=== PATIENT | female | born 1980 | race Caucasian/White ===

== ENCOUNTER 2016-08-20 09:24 | Emergency (ER) | payer BC ==
[~2016-08-20] VITALS: Ht 162.6 cm; Wt 95.5 kg
[~2016-08-20 09:24] MED LIST: ALBUTEROL0.83 MG/ML IH; ALBUTEROL1.25 MG/3 IH; ANTIVERT 25MG25 MG PO; ESCITALOPRAM; FLONASE NASAL S16 GM; FLONASE NASAL S16 GM NS; FLONASEALLERGY NS; LISINOPRIL20 MG PO; MOTRIN 800800 MG/TAB PO; MOTRIN800 MG PO; MUCINEX1200 MG PO; NORCO 325 MG-51 TAB PO; PREDNISONE20 MG PO; ULTRAM 50MG TAB50 MG PO; VENTOLIN0.09 MG IH; VICODIN 5/5001 UDTAB PO; ZITHROMAX 250M250 MG PO; ZYRTEC 10MG10 MG PO
[2016-08-20 09:28] VITALS: BP 136/73; TEMP 98.9
[2016-08-20] MEDS ORDERED: PROAIR HFA0.09 MG/AC IH ×2 (09:59→12:46)
[2016-08-20 11:10] LABS: ADJUSTED CALCIUM 9.2 mg/dL (8.4-10.2); ALANINE AMINOTRANSFERASE 21 U/L (9-52); ALBUMIN 3.8 gm/dL (3.5-5.0); ALKALINE PHOSPHATASE 84 U/L (50-136); ANION GAP 11 mmol/L (7-16); BILIRUBIN,TOTAL 0.8 mg/dL (0.0-1.0); BLOOD UREA NITROGEN 8 mg/dL (7-17); CARBON DIOXIDE 25 mmol/L (22-30); CHLORIDE 102 mmol/L (98-107); GLUCOSE 119 mg/dL (74-106); POTASSIUM 3.7 mmol/L (3.4-5.0); SODIUM 139 mmol/L (137-145); TOTAL PROTEIN 6.9 gm/dL (6.4-8.2)
[2016-08-20 11:22] LABS: TROPONIN-I < 0.012 ng/mL (0.000-0.034)
[2016-08-20] MEDS ORDERED: PREDNISONE20 MG PO (12:46)
[2016-08-20] MEDS ORDERED: AEROCHAMBER1 DEV PO (12:46)
[2016-08-20] MEDS ORDERED: PHENERGAN W/CO120 M1 PO (13:50)
[2016-08-20 14:23] LABS: HEMATOCRIT 31.4 % (37.0-47.0); HEMOGLOBIN 9.4 g/dl (12.5-16.0); MEAN CELL VOLUME 66 fl (80.0-100.0); MEAN CORPUSCULAR HEMOGLOBIN 20 pg (27.0-31.0); MEAN CORPUSCULAR HGB CONC 30 g/dl (33.0-37.0); RED BLOOD COUNT 4.75 M/mm3 (4.10-5.30); REDCELL DISTRIBUTION WIDTH-CV 17.8 % (11.5-14.5); WHITE BLOOD COUNT 16.9 K/mm3 (4.8-10.8)
[2016-08-20 14:27] LABS: BASO % 0.2 % (0.0-2.0); EOS % 1.8 % (0-4.0); GRAN % 85.6 % (42.2-75.2); LYMPH % 8.8 % (20.0-51.0); MONO % 3.1 % (1.7-9.3); PLATELET COUNT 302 K/mm3 (130-400)
[2016-08-20 14:28] LABS: EOS # 0.3 (0.0-0.7); GRAN # 14.4 (1.4-6.5); LYMPH # 1.5 (1.2-3.4); MONO # 0.5 (0.1-0.6)
[2016-08-20] MEDS ORDERED: VIBRAMYCININJ PO (15:01)
[2016-08-20 15:15] VITALS: PULSE 102
== END 2016-08-20 15:15 | disposition home or self-care (01) ==
LOC: COL.ER 09:24
PROVIDERS: Emergency Medicine; Nurse Practitioner
DX: J45.901 Unspecified asthma with (acute) exacerbation (principal); J20.9 Acute bronchitis, unspecified; Z87.891 Personal history of nicotine dependence; R79.89 Other specified abnormal findings of blood chemistry
CPT/HCPCS: J2405; J2930; J7030; Q9967

== ENCOUNTER 2018-03-31 14:52 | Emergency (ER) | payer BC ==
[~2018-03-31] VITALS: Ht 162.6 cm; Wt 95.5 kg
[~2018-03-31 14:52] MED LIST changes: +AEROCHAMBER1 DEV PO; +PHENERGAN W/CO120 M1 PO; +PROAIR HFA0.09 MG/AC IH; +VIBRAMYCININJ PO
[2018-03-31 14:54] VITALS: TEMP 98.7
[2018-03-31 15:55] LABS: ALBUMIN 3.8 gm/dL (3.5-5.0); BILIRUBIN,TOTAL 0.6 mg/dL (0.0-1.0); CALCIUM 8.4 mg/dL (8.4-10.2); CREATININE, serum 0.56 mg/dL (0.52-1.25); POTASSIUM 3.4 mmol/L (3.4-5.0); TOTAL PROTEIN 7.2 gm/dL (6.4-8.2)
[2018-03-31 16:13] LABS: COLLECTION METHOD CLEAN CATCH
[2018-03-31 16:22] LABS: MUCOUS Present /lpf; PH 5 (5-8); SQUAMOUS EPITHELIAL 20-50 /hpf; URINE APPEARANCE Turbid; URINE BACTERIA Rare /hpf; URINE BILIRUBIN Negative (NEGATIVE); URINE BLOOD 1+ (NEGATIVE); URINE COLOR Amber; URINE GLUCOSE Negative (NEGATIVE); URINE KETONE Negative (NEGATIVE); URINE LEUKOCYTE ESTERASE 2+ (NEGATIVE); URINE NITRATE Negative (NEGATIVE); URINE PROTEIN(semi-quant) 1+ (NEGATIVE); URINE UROBILINOGEN Negative (NEGATIVE)
[2018-03-31] MEDS ORDERED: CEPHALEXIN500 M1 PO (17:46)
[2018-03-31] MEDS ORDERED: PHENERGAN 25 TA25 MG PO (17:47)
[2018-03-31 21:26] VITALS: BP 104/55; PULSE 80
== END 2018-03-31 21:26 | disposition home or self-care (01) ==
LOC: COL.ER 14:52
PROVIDERS: Emergency Medicine
DX: K52.9 Noninfective gastroenteritis and colitis, unspecified (principal); N39.0 Urinary tract infection, site not specified
CPT/HCPCS: A4216; J0696; J0780; J1170; J1200; J1885; J2405; J7030

== ENCOUNTER 2020-05-26 16:55 | Observation (INO) | payer BC ==
[~2020-05-26] VITALS: Ht 162.6 cm; Wt 100.0 kg
[~2020-05-26 16:55] MED LIST changes: +CEPHALEXIN500 M1 PO; +PHENERGAN 25 TA25 MG PO
[2020-05-26 17:55] LABS: BASO % 0.3 % (0.0-2.0); EOS # 0.7 (0.0-0.7); EOS % 5.2 % (0-4.0); GRAN # 7.3 (1.4-6.5); GRAN % 57.6 % (42.2-75.2); LYMPH # 3.8 (1.2-3.4); MEAN CELL VOLUME 65 fl (80.0-100.0); MEAN CORPUSCULAR HGB CONC 29 g/dl (33.0-37.0); MONO # 0.8 (0.1-0.6); MONO % 6.3 % (1.7-9.3); PLATELET COUNT 261 K/mm3 (130-400); RED BLOOD COUNT 5.24 M/mm3 (4.10-5.30); REDCELL DISTRIBUTION WIDTH-CV 19.8 % (11.5-14.5)
[2020-05-26 17:58] LABS: INR 1.1 (0.8-3.0); PROTHROMBIN TIME 11.8 SECONDS (9.7-12.8)
[2020-05-26 17:59] LABS: HEMATOCRIT 33.9 % (37.0-47.0); HEMOGLOBIN 9.8 g/dl (12.5-16.0); MEAN CORPUSCULAR HEMOGLOBIN 19 pg (27.0-31.0)
[2020-05-26 18:01] LABS: PARTIAL THROMBOPLASTIN TIME 33.5 SECONDS (26.0-37.0)
[2020-05-26 18:19] LABS: HIV 1/2 Antibodies Non-Reactive; HIV-1p24 Antigen Non-Reactive
[2020-05-26 18:42] LABS: ALBUMIN 4.1 gm/dL (3.5-5.0); BILIRUBIN,TOTAL 0.4 mg/dL (0.0-1.0); CALCIUM 9.1 mg/dL (8.4-10.2); CREATININE, serum 0.55 (0.52-1.25); POTASSIUM 4.2 mmol/L (3.4-5.0); TOTAL PROTEIN 7.6 gm/dL (6.4-8.2)
[2020-05-26 18:50] LABS: COLLECTION METHOD CLEAN CATCH
[2020-05-26 18:55] LABS: MEAN CELL VOLUME 66 fl (80.0-100.0); MEAN CORPUSCULAR HGB CONC 29 g/dl (33.0-37.0); PLATELET COUNT 269 K/mm3 (130-400); RED BLOOD COUNT 5.22 M/mm3 (4.10-5.30); REDCELL DISTRIBUTION WIDTH-CV 19.6 % (11.5-14.5)
[2020-05-26 19:00] LABS: PH 6 (5-8); SQUAMOUS EPITHELIAL 0-2 /hpf; URINE APPEARANCE Hazy; URINE BACTERIA Rare /hpf; URINE BILIRUBIN Negative (NEGATIVE); URINE BLOOD Negative (NEGATIVE); URINE COLOR Yellow; URINE GLUCOSE Negative (NEGATIVE); URINE KETONE Negative (NEGATIVE); URINE LEUKOCYTE ESTERASE Negative (NEGATIVE); URINE NITRATE Negative (NEGATIVE); URINE PROTEIN(semi-quant) Negative (NEGATIVE); URINE RBC 0-2 /hpf; URINE UROBILINOGEN Negative (NEGATIVE)
[2020-05-26 19:03] LABS: HEMATOCRIT 34.2 % (37.0-47.0); HEMOGLOBIN 9.8 g/dl (12.5-16.0); MEAN CORPUSCULAR HEMOGLOBIN 19 pg (27.0-31.0)
[2020-05-26] MEDS ORDERED: ALBUTEROL0.83 MG/ML IH (19:39)
--- NOTE | 2020-05-26 20:45 | NUR ---
Patient to medical room 307 at this time. She ambulates independently from wheelchair to bed and is alert and oriented. She is oriented to room ammenities and the plan for the night. Admission assessments complete.
[2020-05-26 23:31] VITALS: BP 127/55; PULSE 46; TEMP 98.2
[2020-05-26 23:46] VITALS: PULSE 96
--- NOTE | 2020-05-27 00:27 | NUR ---
At this time, patient has just returned to bed from ambulating to and from bathroom. She states whenever she was about to get up and walk to the bathroom she "almost called for help" because her feet and legs felt numb and tingly. She states this has not happened before at home. After a few seconds sitting on the edge of the bed, the sensation subsided and patient was able to independently ambulate to the bathroom. She still has full/normal strength in both lower extremities. She states there is some mild numbness/tingling in her right hand as well; hand title closer are equal and both upper extremities have normal strength. Will continue to monitor.
[2020-05-27 00:37] LABS: IRON,SERUM 17 ug/dL (35-150)
[2020-05-27 00:47] LABS: TOTAL IRON BINDING CAPACITY 377 ug/dL (265-497)
[2020-05-27 03:36] VITALS: BP 118/56; PULSE 107; TEMP 98.2
--- NOTE | 2020-05-27 05:57 | NUR ---
Patient still has complaints of "numbness and tingling in ankles and feet" at this time. She continues to have to acclimate on the side of the bed prior to standing. She states she feels slightly woozy upon standing. Phyllis Oneill notified of this situation. Will continue to monitor.
[2020-05-27 07:48] LABS: BASO % 0.3 % (0.0-2.0); EOS # 0.7 (0.0-0.7); EOS % 6.5 % (0-4.0); GRAN # 6.6 (1.4-6.5); GRAN % 58.5 % (42.2-75.2); LYMPH # 3.1 (1.2-3.4); LYMPH % 27.7 % (20.0-51.0); MEAN CELL VOLUME 65 fl (80.0-100.0); MEAN CORPUSCULAR HGB CONC 29 g/dl (33.0-37.0); MONO # 0.7 (0.1-0.6); MONO % 6.2 % (1.7-9.3); PLATELET COUNT 239 K/mm3 (130-400); RED BLOOD COUNT 4.95 M/mm3 (4.10-5.30); REDCELL DISTRIBUTION WIDTH-CV 19.8 % (11.5-14.5)
[2020-05-27 07:50] LABS: HEMATOCRIT 32.2 % (37.0-47.0); HEMOGLOBIN 9.4 g/dl (12.5-16.0); MEAN CORPUSCULAR HEMOGLOBIN 19 pg (27.0-31.0)
[2020-05-27 07:58] LABS: CALCIUM 8.7 mg/dL (8.4-10.2); CREATININE, serum 0.53 (0.52-1.25); POTASSIUM 4.1 mmol/L (3.4-5.0)
[2020-05-27 08:13] VITALS: BP 124/82; PULSE 95; TEMP 97.7
--- NOTE | 2020-05-27 10:30 | NUR ---
Pt awake and alert upon entry, has some C/O pain in her feet. Shift assessments complete, left Pt call light in reach.
--- NOTE | 2020-05-27 12:02 | NUR ---
First visit from the men's and boys' clothing salesperson. No needs right now.
[2020-05-27 12:34] VITALS: BP 121/56; PULSE 100; TEMP 97.6
[2020-05-27 12:52] VITALS: BP 125/76; PULSE 100
--- NOTE | 2020-05-27 15:10 | NUR ---
Color Coater met with the patient to complete intake. The patient lives in [place] with her daughter, Ashley. The patient is independent.The patient denies DME use. The patient's PCP is Dr. Patel and receives medications from [email or web address]. The patient does not have advanced directives. She is not and Ashley is her only child. The patient plans to return home at discharge and has no concerns about doing so. The patient will drive herself home. There are no additional needs at this time.
[2020-05-27 15:53] VITALS: BP 121/70; PULSE 92; TEMP 98.6
[2020-05-27] MEDS ORDERED: FERROUSAL325 MG PO (16:14)
[2020-05-27] MEDS ORDERED: SENNA-S 50 MG-81 TAB PO (16:14)
--- NOTE | 2020-05-27 18:30 | NUR ---
Pt discharged to home, discussed discharge instructions with Pt. Escorted Pt to entrance, Py left in own vehicle.
== END 2020-05-27 18:30 | disposition home or self-care (01) ==
LOC: COL.ER 16:55 → MEDICAL 18:39
PROVIDERS: Emergency Medicine; Nurse Practitioner; Nurse Practitioner Family
DX: D69.6 Thrombocytopenia, unspecified (principal); R42 Dizziness and giddiness; D72.829 Elevated white blood cell count, unspecified; D50.9 Iron deficiency anemia, unspecified; J45.909 Unspecified asthma, uncomplicated; R20.2 Paresthesia of skin; E66.9 Obesity, unspecified; Z68.37 Body mass index [BMI] 37.0-37.9, adult; Z87.891 Personal history of nicotine dependence
CPT/HCPCS: 99223-AI; 99232-AI; G0378; J2916; J7030

== ENCOUNTER 2021-09-30 11:21 | Emergency (ER) | payer BC ==
[~2021-09-30] VITALS: Ht 162.6 cm; Wt 118.2 kg
[~2021-09-30 11:21] MED LIST changes: +FERROUSAL325 MG PO; +SENNA-S 50 MG-81 TAB PO
[2021-09-30 11:34] VITALS: TEMP 98.3
[2021-09-30 12:30] LABS: INR 1.1 (0.8-3.0); PROTHROMBIN TIME 12.7 SECONDS (9.7-12.8)
[2021-09-30 12:40] LABS: ALBUMIN 3.3 gm/dL (3.5-5.0); BILIRUBIN,TOTAL 0.5 mg/dL (0.2-1.2); CALCIUM 9.1 mg/dL (8.4-10.2); CREATININE, serum 0.62 mg/dL (0.57-1.11); POTASSIUM 4.4 mmol/L (3.5-4.5); TOTAL PROTEIN 7.4 gm/dL (6.2-8.1)
[2021-09-30 14:45] LABS: BASO # 0.1 K/mm3 (0.0-0.2); BASO % 0.4 % (0.0-2.0); EOS # 0.8 K/mm3 (0.0-0.7); EOS % 6.7 % (0.0-4.0); GRAN # 6.9 K/mm3 (1.4-6.5); GRAN % 58.6 % (42.2-75.2); HEMATOCRIT 37.8 % (37.0-47.0); HEMOGLOBIN 11.8 g/dl (12.5-16.0); LYMPH # 3.3 K/mm3 (1.2-3.4); LYMPH % 28.1 % (20.0-51.0); MEAN CELL VOLUME 71 fl (80.0-100.0); MEAN CORPUSCULAR HEMOGLOBIN 22 pg (27-31); MEAN CORPUSCULAR HGB CONC 31 g/dl (33.0-37.0); MONO # 0.7 K/mm3 (0.1-0.6); MONO % 5.7 % (1.7-9.3); RED BLOOD COUNT 5.34 M/mm3 (4.10-5.30); REDCELL DISTRIBUTION WIDTH-CV 17.2 % (11.5-14.5)
[2021-09-30 14:46] LABS: PLATELET COUNT 151 K/mm3 (130-400)
[2021-09-30 15:51] VITALS: BP 108/73; PULSE 64
== END 2021-09-30 15:51 | disposition home or self-care (01) ==
LOC: COL.ER 11:21
PROVIDERS: Emergency Medicine; Physician Assistant
DX: R51.9 Headache, unspecified (principal); H93.13 Tinnitus, bilateral; D69.1 Qualitative platelet defects; E66.9 Obesity, unspecified; Z87.891 Personal history of nicotine dependence
CPT/HCPCS: J1100; J1200; J2765; J7030

== ENCOUNTER → 2021-11-24 | Outpatient (CLI) | payer BC | LOC: COL.RAD 07:20 | DX: R20.2 Paresthesia of skin (principal) ==

== ENCOUNTER 2023-04-14 09:26 | Inpatient (IN) | payer BC ==
[~2023-04-14] VITALS: Ht 162.6 cm; Wt 108.0 kg
[~2023-04-14 09:26] MED LIST changes: +ALA 100MG PO; +MOBIC 7.5MG7.5 MG PO; +VITRON-C PO; +knee brace
[2023-04-14 10:42] LABS: BASO % 0.2 % (0.0-2.0); EOS % 0.2 % (0.0-4.0); GRAN % 65.8 % (42.2-75.2); HEMOGLOBIN 11.9 g/dl (12.5-16.0); LYMPH # 1.1 K/mm3 (1.2-3.4); LYMPH % 24.4 % (20.0-51.0); MEAN CELL VOLUME 77 fl (80.0-100.0); MEAN CORPUSCULAR HEMOGLOBIN 25 pg (27-31); MEAN CORPUSCULAR HGB CONC 33 g/dl (33.0-37.0); MONO # 0.4 K/mm3 (0.1-0.6); PLATELET COUNT 134 K/mm3 (130-400); REDCELL DISTRIBUTION WIDTH-CV 17.4 % (11.5-14.5)
[2023-04-14 10:52] LABS: ALANINE AMINOTRANSFERASE 26 U/L (0-55); ALBUMIN 2.9 gm/dL (3.5-5.0); ALKALINE PHOSPHATASE 59 U/L (40-150); ANION GAP 11 mmol/L (7-16); AST,SGOT 22 U/L (5-34); BILIRUBIN,TOTAL 0.5 mg/dL (0.2-1.2); BLOOD UREA NITROGEN 6 mg/dL (7-19); CALCIUM 8.2 mg/dL (8.4-10.2); CARBON DIOXIDE 24 mmol/L (22-29); CHLORIDE 106 mmol/L (98-107); CREATININE, serum 0.64 mg/dL (0.57-1.11); GLUCOSE 140 mg/dL (70-99); POTASSIUM 3.4 mmol/L (3.5-4.5); SODIUM 141 mmol/L (136-145); TOTAL PROTEIN 6.1 gm/dL (6.2-8.1)
[2023-04-14 10:59] LABS: TROPONIN-I < 0.010 ng/mL (0.00-0.033)
[2023-04-14 13:59] VITALS: BP 96/63; PULSE 91; TEMP 98.8
--- NOTE | 2023-04-14 14:00 | NUR ---
PATIENT ARRIVED FROM ER AWAKE AND ALERT. PATIENT DENIES ANY NEEDS OR COMPLAINTS AT THIS TIME. PATIENTS VSS. CALL LIGHT WITHIN REACH. O2 AT 2LNC.
[2023-04-14] MEDS ORDERED: VITRON-C PO (14:10)
[2023-04-14 15:54] VITALS: BP 108/58; PULSE 89; TEMP 98.1
--- NOTE | 2023-04-14 18:30 | NUR ---
PATIENT AWAKE AND ALERT, SITTING UP IN RECLINER. PATIENT DENIES ANY NEEDS OR CONCERS AT THIS TIME. PATIENTS CALL LIGHT WITHIN REACH.
[2023-04-14 19:45] VITALS: BP 122/54; PULSE 102; TEMP 98.5
--- NOTE | 2023-04-14 20:00 | NUR ---
UPON SHIFT ASSESSMENT, KATHIE WAS UP IN BEDSIDE CHAIR AND AXO X 4. SHE C/O OF VICTOR AND PAIN WHEN BREATHING DEEPLY- FLANK AND STERNAL-6/10. NO INCREASE WOB NOTED. LUNG SOYUNDS AUSCULTATED [id number] LLL AND DIMINISHED IN RT. VSS ARE WNL AND TELE IS NS. WILL REASSESS AND ADMINISTER PRN PAIN MEDICATIONS. SKIN WAS NOTED TO HAVE DIFFUSE SCABS, SCRATCHES R/T NEURODERMATITIS AND CONFIRMED BY PATIENT. CALL LIGHT WITHIN REACH.
[2023-04-14 21:00] VITALS: BP_SYST 122
[2023-04-14 23:24] VITALS: BP 107/52; PULSE 90; TEMP 98.3
[2023-04-15] VITALS (10 sets, daily range): BP systolic 98–124; BP diastolic 52–70; PULSE 77–93; TEMP 97.8–98.8
--- NOTE | 2023-04-15 04:57 | NUR ---
THROUGHOUT THE NIGHT, KATHIE HAD NO NEW EMERGENT STATUS CHANGES. SHE REQUESTED AND WAS ADMINISTERED PRN NORCO AND TESSLON AT 23:45. SHE SLEPT MOST OF THE NIGHT. VS ARE WNL, TELE IS NS.
[2023-04-15 06:59] LABS: BASO % 0.2 % (0.0-2.0); GRAN # 4.6 K/mm3 (1.4-6.5); GRAN % 69.5 % (42.2-75.2); HEMOGLOBIN 10.6 g/dl (12.5-16.0); LYMPH # 1.5 K/mm3 (1.2-3.4); MEAN CELL VOLUME 77 fl (80.0-100.0); MEAN CORPUSCULAR HEMOGLOBIN 25 pg (27-31); MEAN CORPUSCULAR HGB CONC 32 g/dl (33.0-37.0); MONO # 0.5 K/mm3 (0.1-0.6); MONO % 6.8 % (1.7-9.3); PLATELET COUNT 108 K/mm3 (130-400); RED BLOOD COUNT 4.29 M/mm3 (4.10-5.30); REDCELL DISTRIBUTION WIDTH-CV 17.8 % (11.5-14.5)
[2023-04-15 07:07] LABS: CALCIUM 8.2 mg/dL (8.4-10.2); CREATININE, serum 0.51 mg/dL (0.57-1.11); POTASSIUM 3.8 mmol/L (3.5-4.5)
--- NOTE | 2023-04-15 08:00 | NUR ---
PATIENT AWAKE AND ALERT, SITTING UP IN BED. PATIENT ALREADY ORDERED BREAKFAST. SHE DENEIS ANY NEEDS OR COMPLAINTS AT THIS TIME. CALL LIGHT WITHIN REACH.
[2023-04-15 08:05] LABS: HEMATOCRIT 32.9 % (37.0-47.0)
--- NOTE | 2023-04-15 10:27 | NUR ---
Plasma Table Operator met with patient to discuss discharge planning. Patient lives alone in [place] and sees Dr. Cardoza for primary care. Patient obtains [facility] from [facility] with no difficulties. 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 Patient advised she traveled to [place] for the [employer] and started to feel sick at the game. Patient has a nebulizer available at home for asthma flare ups, but no other DME. Patient plans to return home at time of discharge. STEPHANIE discussed Advance Directives with patient who would like to complete a DPOA-HC form. Patient chose to designate her mother, Dilcia as primary agent and daughter, Cecy as secondary. STEPHANIE and VENKATESH Clifford signed as witnesses. STEPHANIE placed a copy in patient's chart, then provided patient the original and additional copies. Discharge Plan: Home
--- NOTE | 2023-04-15 18:42 | NUR ---
BEDSIDE REPORT COMPLETE. PATIENT AWAKE AND ALERT, SITTING UP IN BED. PATIENT DENIES ANY NEEDS OR CONCERNS AT THIS TIME. CALL LIGHT WITHIN REACH.
[2023-04-16 03:45] VITALS: BP 119/70; PULSE 77; TEMP 97.6
--- NOTE | 2023-04-16 05:15 | NUR ---
ASSESSMENT COMPLETE FOR INTERNET PROJECT MANAGER. PT COMPLAINED OF BACK PAIN AND LEFT KNEE BURNING. PT GIVEN NORCO FOR PAIN. HOSPITALIST CALLED ABOUT LEFT KNEE BURNING. ORDER GIVEN TO GIVE PAIN MED EARLY. PT DENIED CHEST PAIN, PALPITATIONS, N,V,D OR DIZZINESS. CALL LIGHT WITHIN REACH.
[2023-04-16 08:01] VITALS: BP 110/68; PULSE 72; TEMP 97.6
--- NOTE | 2023-04-16 08:27 | NUR ---
Pt resting with eyes closed in bed upon entry to room. Easily arousable. Assessment complete. Pt reporting 6/10 pain to left knee. Requesting pain medication. Informed patient she was not yet due for pain medication. When this nurse asked additional questions about her knee she began crying but no tears noted. Reports knee pain is chronic and she has been to the ED a couple times in the recent past. Also had x-rays and placed on anti inflammatory which she reports was not helpful. When this nurse questioned if she had any follow with orthopedic she reported that she was not able to be seen by [facility] due to an outstanding balance she wasn't able to pay. She was then referred to Dr. Perrin but has not secured an appointment. Per claim history- she had Aurora and Percocet filled in December and Meloxicam in February. Reassurance provided to patient that this nurse would communicate knee pain with hospitalist today.
[2023-04-16 09:08] VITALS: BP_SYST 110
[2023-04-16] MEDS ORDERED: DECADRON6 MG PO (09:10)
[2023-04-16] MEDS ORDERED: TAMIFLU 75MG75 MG PO (09:10)
[2023-04-16] MEDS ORDERED: DOXYCYCLINE 10100 MG PO (09:11)
[2023-04-16] MEDS ORDERED: ALBUTEROL0.83 MG/ML IH (11:45)
--- NOTE | 2023-04-16 12:16 | NUR ---
INT to RFA d/c'd with cath tip intact. Discharge instructions reviewed with patient- verbalizes understanding. Pt escorted to private vehicle via w/c and discharged home with family.
--- NOTE | 2023-04-16 15:16 | NUR ---
Pt called this nurse to report that the [facility] is out of Decadron. Dr. Nayeli Daly notified and new order rec'd. Rx for Prednisone 5mg po daily x3 days, disp #3, called to [facility]. Left message on patient's voicemail letting her know that the Rx was called in.
== END 2023-04-16 12:18 | disposition home or self-care (01) | DRG 193 ==
LOC: COL.ER 09:26 → MEDICAL 12:00
PROVIDERS: Personal Emergency Response Attendant; Physician Assistant; ADMIT Internal Medicine
DX: J10.1 Influenza due to other identified influenza virus with other respiratory manifestations (principal); J96.01 Acute respiratory failure with hypoxia; L28.0 Lichen simplex chronicus; Z20.822 Contact with and (suspected) exposure to COVID-19; E87.6 Hypokalemia; G89.29 Other chronic pain; M25.569 Pain in unspecified knee; D50.9 Iron deficiency anemia, unspecified; J44.9 Chronic obstructive pulmonary disease, unspecified; Z79.899 Other long term (current) drug therapy; Z87.891 Personal history of nicotine dependence; Z88.6 Allergy status to analgesic agent; Z88.5 Allergy status to narcotic agent; Z23 Encounter for immunization
CPT/HCPCS: J0456; J0696; J2270; J2405; J2930; J7030; J7050; J8540; Q9967